=== PATIENT | male | born 1970 | race Caucasian/White ===

== ENCOUNTER 2024-10-25 10:45 | Outpatient (CLI) | payer OTHER, SELFPAY ==
--- NOTE | ~2024-10-25 | US_ITS ---
Abdominal wall ULTRASOUND (Doppler ultrasound interrogation techniques used as needed for this exam.) Ordering provider: Elsa Diaz APRN History: . K42.9 - Umbilical hernia without obstruction or gangrene . Comparison: None. FINDINGS/impression: Supraumbilical mixed echogenicity area is seen measuring 3.3 x 1.5 x 2.96 cm and with a neck of 1.3 c m. Limited movement is seen with Valsalva and probe pressure suggestive of hernia. Reviewed, dictated and finalized at location A.
== END 2024-10-25 10:46 | disposition home or self-care (01) ==
PROVIDERS: Visit Provider Nurse Practitioner Family
DX: K42.9 Umbilical hernia without obstruction or gangrene (principal)
CPT/HCPCS: 76705

== ENCOUNTER 2024-11-19 00:10 | Day surgery (SDC) | payer OTHER, SELFPAY ==
[2024-11-08 09:37] VITALS: BMI 35.0
--- NOTE | 2024-11-08 09:38 | PC.NURSE ---
Report to the Outpatient Waiting Room, entrance under the green pavilion located off [facility], at time _1pm_ on date _[id number]_. Planned Procedure Time: _3pm_. Time changes happen often and if your time is changed the preop area will call you the afternoon before. - You and your visitor will be asked to self-screen and do not enter if you have any COVID symptoms. Please call surgeon if you need to reschedule. - A mask is optional within the hospital at this time. Patients may have clear liquids (water, carbonated beverages, clear teas, apple juice) until 3 hours prior to surgery with a maximum of 20 ounces. - No food from midnight until time of surgery and no smoking, or chewing tobacco (or any form of nicotine). No chewing gum, candy or mints. Take only the following medications with a SIP of water on the morning of surgery: _None____ DO NOT STOP ANY OF YOUR OTHER PRESCRIPTION MEDICATIONS PRIOR TO SURGERY EXCEPT THE FOLLOWING Hold all vitamins and supplements for 3 days per anesthesiologist. Medications to discontinue per physician Date to take last dose Please no make-up, nail albanian, hairspray, perfume, deodorant, or body powder the day of surgery. No jewelry (including any body piercings) or valuables the day of surgery, leave them at home. Please take a shower or bath the night before, or the morning of, surgery with an antibacterial soap. Wear comfortable, loose fitting clothing. - Jewelry must be removed prior to entering the operating room. Rings and piercings that are not removed may be cut off. - The hospital will not accept responsibility for valuables. - Please leave all valuables, including medications, at home the day of surgery. If you are going home after surgery, a licensed fuel truck driver must drive you home. - NO public transportation without another adult if you receive anesthesia. - We recommend that an adult stay with you for 24 hours following discharge. - We also recommend that you do not drive, make important decision, drink alcoholic beverages, or take any drugs that were not prescribed by your health care provider for at least 24 hours after your discharge time. Follow any additional instructions given to you from your surgeon. Telephone instructions given to __Chris__and asked if any additional questions and then verbalized understanding. Patient advised to call surgeon office or pre surgery nurse liaison [phone] if any additional questions.
[2024-11-19] VITALS (8 sets, daily range): BP systolic 127–151; BP diastolic 80–95; PULSE 62–87; RESP 10–18; TEMP 36.1–36.4; O2SAT 97–100
[2024-11-19] MEDS: ACETAMINOPHEN 500 MG TABLET 1000 MG PO (13:25)
[2024-11-19] MEDS: LACTATED RINGERS 1,000 ML 30 ML IV CONT (13:30)
[2024-11-19] MEDS: KETOROLAC 15 MG/ML VIAL (*BKC) IV PUSH (13:30)
--- NOTE | 2024-11-19 13:31 | P.PNAN_ITS ---
Anes - Initial Pre Proc Eval Procedure: Operation Date: 11/19/24 15:00 Proposed Procedures p Open Umbilical Hernia Repair with Mesh - Marshall Ro DO Date/Time: 11/19/24 13:31 Surgeon: Marshall Ro DO Pre Op Diagnosis: Umbilical Hernia Patient Data Age: 54 Gender: M Height: 1.73 m Weight: 104.5 kg Allergies Allergy/AdvReac Type Severity Reaction Status Date / Time No Known Allergies Allergy Verified 11/08/24 09:33 Home Medications Medication Instructions Recorded Confirmed Type No Home Medications 10/02/24 11/08/24 History Patient hx anesthesia problems: none Family hx anesthesia problems: none Results Review: All pre-operative results and documents have been reviewed as part of the pre- operative evaluation. [facility] Surgical History Surgical History History of appendectomy Family History Family History Mother Lung cancer Brain cancer Cancer Father Lung cancer Cancer Grandparent Malignant neoplasm of prostate Cancer Sibling Liver cancer Cancer Sibling Cancer of kidney Social History Social History Smoking status: Never smoker Alcohol intake: never Substance use: never Current Housing: Decline to Answer Concerned About Future Housing: Decline to Answer Difficulty Paying Gas/Electric Bills: Decline to Answer Difficulty Paying for Meds: Decline to Answer Currently Unemployed: Decline to Answer Education: High School Diploma/GED Difficulty w/ Childcare or Family Care: Decline to Answer Living arrangements: with family Occupation/Education: occupation Spiritual care concerns: No Anes - Eval Final PreProcedure Day of Procedure 11/19/24 13:31 Patient weight: obese Heart: regular rate and rhythm Lungs: clear to auscultation Airway: Mallampati scale class II Neurological: alert and oriented Last oral intake: >/= 8 hours ASA classification: II Emergent: no Anesthetic plan: proceed Anesthesia type and monitoring: general LMA and ETT and standard monitoring Results Review: All pre-operative results and documents have been reviewed as part of the pre- operative evaluation. Informed Consent: The patient's anesthetic plan and its attendant risks and benefits were discussed with the patient/family/POA. Questions were solicited and answers provided to the satisfaction of the patient/family/POA.
--- NOTE | 2024-11-19 13:37 | WPDHPUPDATE1 ---
History and Physical Update Update Date/Time: 11/19/24 13:37 History and Physical has been reviewed, including an updated exam of the patient. There are NO changes in the patient's condition. Risks, benefits, and alternatives have been discussed and questions answered. Patient agrees to proceed with procedure.
[2024-11-19] MEDS: ceFAZolin 2 GM/D5W 50 ML 2 GM/50 ML BAG IVPB (14:36)
[2024-11-19] MEDS: BUPIVACAINE/EPINEPHRINE 0.5% 50 ML VIAL 30 ML INFILTRATE (14:54)
--- NOTE | 2024-11-19 15:57 | P.OP_ITS ---
Procedure Note - Detailed Date of Procedure 11/19/24 Pre-op Diagnosis Umbilical Hernia Post-op Diagnosis Other (3.5 cm ventral and umbilical hernias) Procedure Performed Open 3.5 cm ventral and umbilical hernia repair with [address] hernia patch Surgeon Marshall Ro, DO Anesthesia General and Local (0.5% bupivacaine with epinephrine) Indications This is a 54-year-old man who presented with an umbilical bulge and discomfort that he noticed about 8 months ago while at work. He was having more symptoms from this throughout the past several months and was eventually sent for ultrasound which showed evidence of a hernia defect. He has a reducible umbilical hernia exam. Discussions were made with the patient about treatment options and decision was made to proceed with open umbilical hernia repair with mesh. Findings The patient was actually found to have a supraumbilical ventral hernia along with an umbilical hernia. The supra umbilical ventral hernia portion measured about 2 cm and was containing preperitoneal fat. He also had a 1 cm umbilical hernia containing preperitoneal fat. There was a thin 0.5 cm rim of fascia between the 2 hernias. The total distance combining the 2 hernias from cephalad to caudad measured 3.5 cm. The hernia sac was excised and sent to the lab for pathology. A preperitoneal space was then created for mesh placement. I then chose an [address] hernia patch and secured this within the preper itoneal space. The fascia was then closed over the mesh using 0 Ethibond [id number] sutures. Description of Procedure Procedure as well as risks, benefits, and alternatives were discussed with the patient. Written consent was obtained and placed in chart prior to procedure. Patient was brought back to surgical suite. He was placed supine on operating table. He was then intubated by Anesthesia Department. His abdomen was prepped and draped in sterile fashion using chlorhexidine prep. 0.5% bupivacaine with epinephrine was infiltrated locally around the operative area. A 6 cm curvilinear incision was made just superior to the umbilicus using a 15 blade scalpel. Electrocautery was used for hemostasis and for dissection down through the subcutaneous fat. Hernia sac was encountered and this was carefully freed up from surrounding subcutaneous fat using electrocautery. A supraumbilical ventral hernia sac was identified along with the umbilical hernia sac. The hernia sacs were freed up all the way down to the level of the fascia. The hernia sac was excised with electrocautery and sent to the lab for pathology. The umbilical stalk was then lifted off of the fascia with electrocautery. There was a thin rim of fascia between the 2 hernia defects. This was transected using electrocautery. The combine hernia defect was then measured. This was measuring approximately 3.5 cm. The decision was made to use an [address] hernia patch. The peritoneum was cleared under the fascia circumferentially around the hernia using blunt dissection and electrocautery. The peritoneal opening from excising the hernia sac was then closed using 3-0 Vicryl running suture. Once a wide enough pocket was created for the mesh, the mesh was then placed within this preperitoneal pocket and laid out flat centered on the hernia defect. The mesh appeared to be sitting in proper position. The mesh was then secured at the right and left lateral edges using 0 Ethibond U- stitch trans fascial sutures. The hernia defect was then closed over the mesh while incorporating the anterior leaflet of the mesh using 0 Ethibond figure-of- eight sutures. The repair was inspected and appeared secure. 0.5% bupivacaine with epinephrine was infiltrated around the fascia and subcutaneous space. The umbilical stalk was then reapproximated to the fascia using a 3 0 Vicryl simple interrupted suture. The deep dermis was reapproximated using 3 0 Vicryl simple interrupted sutures, and then the skin was approximated using 4 Monocryl running subcuticular suture. Exofin glue was then applied on top. The patient was then awakened from anesthesia, extubated, and transferred to recovery. Implants [address] hernia patch Estimated Blood Loss 5 Pathology Yes (Hernia sac) Complications No immediate complications Condition Stable Disposition Same day [facility] Billing Surgery - Charge Forward: Surgery Billing
== END 2024-11-19 17:19 | disposition home or self-care (01) ==
PROVIDERS: Visit Provider Surgery
PROC: (CPT 49593; principal; 2024-11-19 15:00)
DX: K42.9 Umbilical hernia without obstruction or gangrene (principal); E66.9 Obesity, unspecified; Z68.34 Body mass index [BMI] 34.0-34.9, adult
CPT/HCPCS: 49593; 88302; A9270; C1781; J0690; J1100; J1885; J2003; J2250; J2405; J2704; J3010; J7120

== ENCOUNTER 2025-06-18 00:19 | Day surgery (SDC) | payer OTHER, SELFPAY ==
[2025-06-12 16:31] VITALS: BMI 34.9
--- NOTE | 2025-06-12 16:57 | SUR.PREOP ---
[facility] has started construction of its new state of the art ER which will open Spring 2026. With this, we anticipate parking may be a challenge for some our surgical patients and families. Parking spaces are limited but are available for all Surgical, obstetrics, and ER patients sharing this lot. If you arrive and find you are having a hard time finding a parking space, please note that we understand the challenges, please drive around the hospital and park near Hospital Entrance 1. When you enter this entrance, you can ask a volunteer to direct or take you back to the surgical waiting area to check in. We appreciate everyone?s understanding of these expected challenges while we build for your future. Report to the Outpatient Waiting Room, entrance under the green pavilion located off [address], at time 0730 on date 06/18/25. Planned Procedure Time: _09__.? Time changes happen often and if your time is changed the preop area will call you the afternoon before. - You and your visitor will be asked to self-screen and do not enter if you have any COVID symptoms. Please call surgeon if you need to reschedule. - A mask is optional within the hospital at this time. Patients may have clear liquids (water, carbonated beverages, clear teas, apple juice) until 3 hours prior to surgery with a maximum of 20 ounces. - No food from midnight until time of surgery and no smoking, or chewing tobacco (or any form of nicotine). No chewing gum, candy or mints. - Infants may have breast milk until 4 hours before surgery, formula 6 hours prior to surgery. - Children will be allowed to drink immediately following surgery.? If applicable, please bring a bottle or sippy cup to assist with drinking. Juice, water, soda, and popsicles are readily available.? For infants on formula, please bring formula the day of surgery.? Pacifiers are allowed. Take only the following medications with a SIP of water on the morning of surgery: ___n/a___ DO NOT STOP ANY OF YOUR OTHER PRESCRIPTION MEDICATIONS PRIOR TO SURGERY EXCEPT THE FOLLOWING Hold all vitamins and supplements for 3 days per anesthesiologist. Medications to discontinue per physician n/a Date to take last dose Please no make-up, nail azeri, hairspray, perfume, deodorant, or body powder the day of surgery.? No jewelry (including any body piercings) or valuables the day of surgery, leave them at home.? Please take a shower or bath the night before, or the morning of, surgery with an antibacterial soap.? Wear comfortable, loose fitting clothing.? Children are encouraged to wear pajamas. - Jewelry must be removed prior to entering the operating room.? Rings and piercings that are not removed may be cut off. - The hospital will not accept responsibility for valuables.? - Please leave all valuables, including medications, at home the day of surgery. If you are going home after surgery, a licensed cdl team truck driver must drive you home.? - NO public transportation without another adult if you receive anesthesia. - We recommend that an adult stay with you for 24 hours following discharge. - We also recommend that you do not drive, make important decision, drink alcoholic beverages, or take any drugs that were not prescribed by your health care provider for at least 24 hours after your discharge time. For Pediatric surgeries, we recommend two adults accompany the child home. Follow any additional instructions given to you from your surgeon. Telephone instructions given to __patient__and asked if any additional questions and then verbalized understanding. Patient advised to call surgeon office or pre surgery nurse liaison [phone] if any additional questions.
[2025-06-18] VITALS (9 sets, daily range): BP systolic 124–145; BP diastolic 79–95; PULSE 64–85; RESP 14–16; TEMP 36.4–36.5; O2SAT 90–99
[2025-06-18] MEDS: LACTATED RINGERS 1,000 ML 30 ML IV CONT ×2 (08:00→12:34)
[2025-06-18] MEDS: KETOROLAC 15 MG/ML VIAL (*BKC) IV PUSH (08:30)
[2025-06-18] MEDS: ACETAMINOPHEN 500 MG TABLET 1000 MG PO (08:30)
--- NOTE | 2025-06-18 09:20 | P.HP_ITS ---
H&P: HPI History of Present Illness Date/Time: 06/18/25 09:20 Chief Complaint: Recurrent umbilical hernia Narrative: This is a 54-year-old man who presents for recurrent umbilical hernia repair. He reports no changes since last. Review of Systems Review of Systems: All systems reviewed & are unremarkable except as noted in HPI and below Constitutional: Constitutional: Denies chills, Denies fever(s), Denies headache(s) and Denies weight loss Eyes: Eyes: Denies change in vision ENT: Denies dizziness, Denies headache(s), Denies neck mass and Denies throat swelling Cardiovascular: Cardiovascular: Denies chest pain, Denies lightheadedness and Denies dyspnea Respiratory: Respiratory: Denies cough, Denies dyspnea and Denies wheezing Gastrointestinal: Gastrointestinal: Denies abdominal pain, Denies change in bowel habits, Denies nausea and Denies vomiting Genitourinary: Genitourinary: Denies hematuria and Denies dysuria Musculoskeletal: Musculoskeletal: Reports as per HPI Integumentary/Breasts: Skin/Breast: Reports as per HPI Neurologic: Denies dizziness and Denies headache(s) Allergic/Immunologic: Allergic/Immunologic: Denies throat swelling and Denies wheezing PMFSH Surgical History Surgical History History of umbilical hernia repair 11/19/24 Open 3.5 cm ventral and umbilical hernia repair with [address] hernia patch Dr. Ro History of appendectomy Family History Family History Mother Lung cancer Brain cancer Cancer Father Lung cancer Cancer Grandparent Malignant neoplasm of prostate Cancer Sibling Liver cancer Cancer Sibling Cancer of kidney Social History Social History Smoking status: Never smoker Alcohol intake: never Substance use: never Current Housing: Decline to Answer Concerned About Future Housing: Decline to Answer Difficulty Paying Gas/Electric Bills: Decline to Answer Difficulty Paying for Meds: Decline to Answer Currently Unemployed: Decline to Answer Education: High School Diploma/GED Difficulty w/ Childcare or Family Care: Decline to Answer Living arrangements: with family Occupation/Education: occupation Spiritual care concerns: No Meds Home Medications and Allergies Home Medications ?Medication ?Instructions ?Recorded ?Confirmed ?Type No Home Medications 12/06/24 06/12/25 H istory Allergies Allergy/AdvReac Type Severity Reaction Status Date / Time No Known Allergies Allergy Verified 06/18/25 08:21 Vital Signs Vital Signs - 24 hr 06/18/25 08:00 Temperature 97.7 F Pulse Rate 73 Respiratory Rate 16 Blood Pressure 142/91 H Pulse Oximetry 99 Oxygen Delivery Room Air Exam Const: General: no acute distress and alert Orientation/consciousness: patient oriented x3 HENMT: Head: normocephalic and atraumatic Ears: hearing grossly normal bilaterally Face/Nose/Sinus: Normal nares present Mouth: Yes Normal oral and palatal mucosa present Eyes: Periorbital: periorbital findings normal Sclera: sclerae normal EOM: EOMs intact bilaterally Neck: Neck: normal visual inspection, no lymphadenopathy and trachea midline Chest: Chest palpation & inspection: normal inspection of the chest Resp: Effort & Inspection: normal respiratory effort Auscultation: clear to auscultation bilaterally Cardio: Jugular venous distension: no JVD Rate: regular rate Rhythm: regular rhythm Heart sounds: S1 normal heart sound present and S2 normal heart sound present Peripheral pulses: Peripheral pulses 2+ throughout GI: Inspection: normal to inspection GI Palp: Yes Soft to palpation, No Tenderness to palpation present (GI), No Guarding due to palpation present (GI), Yes Hernia present umbilical 3-10 cm and No Rebound tenderness present Percussion: Yes normal to percussion Auscultation: normal bowel sounds : General: Yes no CVA tenderness Back/Spine/Pelvis: Back: no CVA tenderness Neuro: General: patient oriented x3, no focal motor deficits and CN's II-XI intact bilaterally Cognition (Neuro): normal cognition Speech: normal speech Motor exam (neuro): 5/5 motor strength present throughout Extrem: General: capillary refill normal and no clubbing, cyanosis or edema Assessment and Plan Assessment and plan (1) Recurrent umbilical hernia: Code(s): K42.9 - Umbilical hernia without obstruction or gangrene Status: Acute Assessment and Plan: I have recommended laparoscopic recurrent umbilical hernia repair with mesh, da Dalia assisted. I have discussed the procedure, risks, benefits, and alternatives with the patient. All questions answered. No changes since last seen in office.
--- NOTE | 2025-06-18 09:21 | WPDHPUPDATE1 ---
History and Physical Update Update Date/Time: 06/18/25 09:21 History and Physical has been reviewed, including an updated exam of the patient. There are NO changes in the patient's condition. Risks, benefits, and alternatives have been discussed and questions answered. Patient agrees to proceed with procedure.
--- NOTE | 2025-06-18 09:49 | P.PNAN_ITS ---
Anes - Initial Pre Proc Eval Procedure: Operation Date: 06/18/25 09:30 Proposed Procedures p Laparoscopic Recurrent Umbilical Hernia Repair with Mesh, Davinci Assisted - Marshall Ro DO Date/Time: 06/18/25 09:49 Surgeon: Marshall Ro DO Pre Op Diagnosis: recurrent umbilical hernia 4cm Patient Data Age: 54 Gender: M Height: 1.73 m Weight: 106.3 kg Last Vital Signs Temp 97.7 F 06/18/25 08:00 Pulse 73 06/18/25 08:00 Resp 16 06/18/25 08:00 BP 142/91 H 06/18/25 08:00 Pulse Ox 99 06/18/25 08:00 O2 Del Method Room Air 06/18/25 08:00 Allergies Allergy/AdvReac Type Severity Reaction Status Date / Time No Known Allergies Allergy Verified 06/18/25 08:21 Home Medications ?Medication ?Instructions ?Recorded ?Confirmed ?Type No Home Medications 12/06/24 06/12/25 H istory Laboratory Tests 06/18/25 08:24 Blood Type O Positive Antibody Screen Negative Patient hx anesthesia problems: none Family hx anesthesia problems: none Results Review: All pre-operative results and documents have been reviewed as part of the pre- operative evaluation. [facility] Surgical History Surgical History History of umbilical hernia repair 11/19/24 Open 3.5 cm ventral and umbilical hernia repair with [address] hernia patch Dr. Ro History of appendectomy Family History Family History Mother Lung cancer Brain cancer Cancer Father Lung cancer Cancer Grandparent Malignant neoplasm of prostate Cancer Sibling Liver cancer Cancer Sibling Cancer of kidney Social History Social History Smoking status: Never smoker Alcohol intake: never Substance use: never Current Housing: Decline to Answer Concerned About Future Housing: Decline to Answer Difficulty Paying Gas/Electric Bills: Decline to Answer Difficulty Paying for Meds: Decline to Answer Currently Unemployed: Decline to Answer Education: High School Diploma/GED Difficulty w/ Childcare or Family Care: Decline to Answer Living arrangements: with family Occupation/Education: occupation Spiritual care concerns: No Anes - Eval Final PreProcedure Day of Procedure 06/18/25 09:49 Patient weight: obese Heart: regular rate and rhythm Lungs: clear to auscultation Airway: Mallampati scale class II Neurological: alert and oriented Last oral intake: >/= 8 hours ASA classification: II Emergent: no Anesthetic plan: proceed Anesthesia type and monitoring: general ETT and standard monitoring Results Review: All pre-operative results and documents have been reviewed as part of the pre- operative evaluation. Informed Consent: The patient's anesthetic plan and its attendant risks and benefits were discussed with the patient/family/POA. Questions were solicited and answers provided to the satisfaction of the patient/family/POA.
[2025-06-18] MEDS: ceFAZolin 2 GM in SODIUM CHLORIDE 0.9% IV 50 ML 100 ML IVPB (09:54)
--- NOTE | 2025-06-18 12:09 | S_PTH ---
PATIENT: Syed Lee LOC: [facility] U#:[id number] AGE/SX: 54/M ROOM: RE06/18/[address]: Marshall Ro DO : 1970 BED: DIS: 06/18/2025 SPEC #: [id number] RECD: 06/18/25 12:57 STATUS: GEOVANNI REQ #: [id number] NITA: 06/18/25 12:[address]: Marshall Ro DEPT: [facility] Surgical RECD BY: Lucius Valdovinos ENTERED: 06/18/25 12:57 SP TYPE: Surgical OTHR DR: Elsa Diaz, PAMELA Tissues: A - Mesh Procedures: Gross Exam Level 1
--- NOTE | 2025-06-18 12:21 | P.OP_ITS ---
Procedure Note - Detailed Date of Procedure 06/18/25 Pre-op Diagnosis recurrent umbilical hernia Post-op Diagnosis Same (4 cm recurrent umbilical hernia) Procedure Performed 1. Laparoscopic 4 cm recurrent umbilical hernia repair with mesh, da Dalia assisted 2. Laparoscopic removal of old mesh foreign body, da Adlia assisted Surgeon Marshall Ro DO Anesthesia General and Local (0.5% bupivacaine with epinephrine) Indications This is a 54-year-old man who presented with a recurrent umbilical hernia. He h ad previously had an umbilical hernia repair about 7 months ago and was doing well initially postoperatively but then about 3 months ago began noticing a recurrent bulge just above his umbilicus. He was found to have a recurrent umbilical hernia on exam. Discussions were made with the patient about treatment options and decision was made to proceed with robotic assisted laparoscopic recurrent umbilical hernia repair with mesh. Findings Robotic assisted laparoscopic 4 cm recurrent umbilical hernia repair with mesh was performed. The patient was found to have a 4 cm recurrent hernia defect protruding just above the previous repair. The upper portion of the previous mesh was protruding into the inferior portion of the hernia. The hernia sac, preperitoneal fat, and previous mesh were excised to allow for wide placement of a new mesh. There was a small persistent seroma within the hernia sac but no other significant abnormalities were noted. The fascial edges were reapproximated using 1-Stratafix running absorbable suture. A Ventralight ST 20 cm x 15 cm mesh was then placed as an intraperitoneal onlay mesh technique. The mesh was secured circumferentially using 2-0 Stratafix running absorbable suture. The old mesh that was removed was sent to the lab for pathology. Description of Procedure Procedure as well as risks, benefits, and alternatives were discussed with the patient. Written consent was obtained and placed in chart prior to procedure. Patient was brought back to surgical suite. He was placed supine on operating table. Time-out was done to confirm patient and procedure. He was then intubated by the anesthesia department. A bump was placed under his left hip, and the bed was flexed slightly to extend the space between his costal margin and iliac crest. His abdomen was prepped and draped in sterile fashion using chlorhexidine prep. A 5 millimeter incision was made in the left upper quadrant, and a 5 millimeter Optiview trocar was advanced through the abdominal layers under direct visualization. Once inside the abdominal cavity, carbon dioxide in sufflation was used to create a pneumoperitoneum. His abdomen was inspected. An 8 millimeter incision was made in the left lower quadrant, and an 8 millimeter robotic trocar was placed under direct visualization. Another 8 millimeter incision was made in the left lateral abdomen, and an 8 millimeter robotic trocar was placed under direct visualization. 0.5% bupivacaine with epinephrine was infiltrated around each port site. The 5 millimeter port was removed, and an 8 mm robotic trocar was placed under direct visualization. The robotic arms were brought up to the patient's bedside and secured to the ports. The camera and instruments were inserted, and I then moved over to the robotic console and took control of the camera and instruments. After careful thorough inspection of the abdominal cavity, I began my dissection at the hernia. The hernia sac and preperitoneal fat was excised using scissors with electrocautery. I then encountered the previous mesh in the inferior portion of the hernia defect. The mesh was carefully excised from the fascia and hernia defect using scissors with electrocautery. There was a small seroma within the hernia sac as the mesh was excised. The mesh was completely excised and then removed at the end of the procedure along with the hernia sac and preperitoneal fat. The falciform ligament was then taken down cephalad to allow for mesh placement using scissors with electrocautery. I then measured the hernia size. The hernia measured 4 cm. I had to exchange the 8 mm left upper quadrant port for a 12 mm port to allow for a large enough mesh to be placed. The fascia was closed using an 1-Stratafix running suture in a vertical fashion. A suture was started at the cephalad and caudad end of the hernia defect and then this was run to the middle well progressively applying tension along the way. The pneumoperitoneum was also dropped all the way down to 4 mmHg to adequately approximate the fascia while pulling the suture taut. A Ventralight ST 20 cm x 15 cm mesh with Echo 2 positioning device was then placed within the abdominal cavity. This was oriented vertically with the mesh centered on the hernia defect. The mesh was then secured circumferentially to the abdominal wall using 2-0 Stratafix running absorbable suture. The repair was inspected, and one final inspection was made around the abdominal cavity. The Echo 2 p ositioning device was removed. I had to cut the mesh in half to allow to be a extracted, and then the hernia sac was also extracted at the end of the procedure. The left upper quadrant port was disengage from the robot and then the fascia of this port site was reapproximated using a Elijah-Crissy cone with a an 0 Vicryl suture. The robotic instruments were then removed, and the robotic arms were disengaged from the trocars. The ports were then removed under direct visualization, the camera was removed, and the pneumoperitoneum was released. The skin of the incisions was then approximated using 4-0 Monocryl subcuticular suture. Exofin glue was then applied on top. The patient was then awakened from anesthesia, extubated, and transferred to recovery. Implants Ventralight ST 20 cm x 15 cm mesh with Echo 2 positioning device Estimated Blood Loss 5 Pathology Yes (Old hernia mesh) Complications No immediate complications Condition Stable Disposition Same day [facility] Billing Surgery - Charge Forward: Surgery Billing
== END 2025-06-18 14:35 | disposition home or self-care (01) ==
PROVIDERS: PCP Nurse Practitioner Family; Visit Provider Surgery
PROC: (CPT 49615; principal; 2025-06-18 09:30)
DX: K42.9 Umbilical hernia without obstruction or gangrene (principal); E66.9 Obesity, unspecified; Z68.35 Body mass index [BMI] 35.0-35.9, adult
CPT/HCPCS: 49615; 49623; S2900; 36415; 86850; 86900; 86901; 88300; J0690; A9270; C1781; J1100; J1885; J2003; J2250; J2405; J2704; J3010; J7120